=== PATIENT | male | born 1995 | race Caucasian/White ===

== ENCOUNTER 2022-05-18 20:06 | Emergency (ER) | payer OTHER, SELFPAY ==
[2022-05-18] VITALS (15 sets, daily range): BP systolic 123–147; BP diastolic 72–87; PULSE 66–83; RESP 6–18; TEMP 36.6; O2SAT 95–100
--- NOTE | ~2022-05-18 | XR_ITS ---
EXAMINATION: XR chest 2V DATE: 05/18/2022 20:51 INDICATION: Chest pain. TECHNIQUE: Frontal and lateral views of the chest were obtained on 3 radiographs. COMPARISON: None. FINDINGS: There is no pneumonia, pleural effusion, or pneumothorax. The heart size is normal. IMPRESSION: 1. No acute cardiopulmonary disease. Reviewed, dictated and finalized at location A. [employer]
--- NOTE | 2022-05-18 20:23 | ECG_ITS ---
Measurements Intervals [place] Rate: 62 P: 22 MI: 163 QRS: 9 QRSD: 108 T: 9 QT: 376 QTc: 382 Interpretive Statements SINUS RHYTHM WITH MARKED SINUS ARRHYTHMIA NONSPECIFIC ST ELEVATION CONSIDER EARLY REPOLARIZATION ABNORMALITY BORDERLINE ECG NO PREVIOUS ECG AVAILABLE FOR COMPARISON Electronically Signed On 05-21-2022 13:54:52 OBSTETRICAL TECH by Ambrosio Max M.D.
[2022-05-18 20:39] LABS: Basophils Absolute Auto 0.1 K/mm3 (0.0-0.1); Basophils Percent Auto 0.5 % (0.2-1.2); Eosinophils Absolute Auto 0.1 K/mm3 (0-0.3); Eosinophils Percent Auto 0.7 % (0-4.4); Hemoglobin 15.8 g/dL (14.0-18.0); Immature Granulocyte Absolute 0.03 K/mm3 (0.00-0.031); Immature Granulocyte Percent A 0.3 % (0-0.5); Lymphocytes Absolute Auto 3.89 K/mm3 (0.9-3.2); Lymphocytes Percent Auto 35.4 % (18.3-44.2); Mean Corpuscular HGB Conc 35.1 g/dl (32-36); Mean Corpuscular Hemoglobin 29.6 pg (26-34); Mean Corpuscular Volume 84.3 fl (80-100); Monocytes Absolute Auto 0.8 K/mm3 (0.1-0.6); Monocytes Percent Auto 7.4 % (2.6-8.5); Neutrophils Absolute Auto 6.1 K/mm3 (1.3-6.7); Neutrophils Percent Auto 55.7 % (45.5-73.1); Platelet Count Result 242 k/mm3 (150-375); Red Blood Count 5.34 M/mm3 (4.6-6.20); Red Cell Distribution Width 12.3 % (11.5-14.5)
[2022-05-18 20:58] LABS: Alanine Aminotransferase 34 U/L (6-50); Albumin Level 5.1 g/dL (3.5-5.1); Alkaline Phosphatase 71 U/L (38-126); Anion Gap 14 mmol/L (8-16); Aspartate Amino Transferase 31 U/L (17-59); Bilirubin,Total 0.6 mg/dL (0.2-1.3); Blood Urea Nitrogen 17 mg/dL (9-20); Calcium 9.9 mg/dL (8.4-10.2); Carbon Dioxide 21 mmol/L (22-30); Chloride 99 mmol/L (98-107); Estimated CRCL calculation 143 ml/min; Estimated Glomerular Filt Rate > 60; Glucose 104 mg/dL (65-110); Lipase 69 U/L (23-300); Potassium 3.3 mmol/L (3.4-5.0); Sodium 134 mmol/L (137-145)
[2022-05-18 20:59] LABS: Prothrombin Time 12.5 Seconds (11.1-14.7)
[2022-05-18 21:00] LABS: Partial Thromboplastin Time 23.8 SECONDS (22.3-36.8)
[2022-05-18 21:08] LABS: Troponin I < 0.012 ng/mL (0.000-0.034)
[2022-05-18] MEDS: ASPIRIN 81 MG CHEWABLE TABLET 324 MG PO (21:14)
[2022-05-18 21:22] LABS: D Dimer < 0.27 ug/mL (<0.48)
--- NOTE | 2022-05-18 22:35 | ED.GENADULT ---
HPI - General Adult General Chief complaint: Arrhythmia/Palpitations Stated complaint: chest pain. ?anxiety Time Seen by Provider: 05/18/22 20:22 History of Present Illness HPI narrative: Patient 26-year-old gentleman who presents the emergency department with chief complaint of chest tightness and heaviness. Patient states that he started having a fullness feeling in his chest and felt as though the world was caving in on him. Patient states he has had several episodes like this before in the past and attributed to anxiety. Patient states this evening he had an episode of short about 20 minutes prior to arrival in the emergency department. Patient reports that is doing better upon arrival reports that he has no other significant past medical history Related Data Allergies Allergy/AdvReac Type Severity Reaction Status Date / Time No Known Allergies Allergy Unknown Verified 01/10/19 12:50 No Known Allergies Allergy Uncoded 01/10/19 12:50 Course Vital Signs Vital signs: Vital Signs Pulse Rate 70 05/18/22 20:00 Temperature 36.6 C 05/18/22 20:16 Pulse Rate 70 05/18/22 22:48 Respiratory Rate 17 05/18/22 22:48 Blood Pressure 135/81 05/18/22 22:31 Pulse Oximetry 97 05/18/22 22:48 Oxygen Delivery Room Air 05/18/22 20:16 Medical Decision Making [facility] Narrative Medical decision making narrative: Differential diagnosis includes ACS, anxiety, atypical chest pain. Pneumothorax and PE was included as well EKG showed sinus rhythm rate of 62 nonspecific T wave abnormalities without significant ST elevation or ST depression Laboratory studies were obtained which showed a negative D-dimer negative initial troponin. Chest x-ray interpreted by radiology showed no acute disease process Repeat troponin was negative. The patient is feeling much better at this time Vital Signs Vital Signs: Vital Signs Pulse Rate 70 05/18/22 20:00 Temperature 36.6 C 05/18/22 20:16 Pulse Rate 70 05/18/22 22:48 Respiratory Rate 17 05/18/22 22:48 Blood Pressure 135/81 05/18/22 22:31 Pulse Oximetry 97 05/18/22 22:48 Oxygen Delivery Room Air 05/18/22 20:16 Lab Data 05/18/22 20:30 05/18/22 20:30 Labs: Lab Results 05/18/22 05/18/22 05/18/22 Range/Units 20:30 20:30 20:30 WBC 11.0 H (4.5-10.0) K/mm3 RBC 5.34 (4.6-6.20) M/mm3 Hgb 15.8 (14.0-18.0) g/dL Hct 45.0 (42.0-52.0) % MCV 84.3 (80-100) fl MCH 29.6 (26-34) pg MCHC 35.1 (32-36) g/dl RDW 12.3 (11.5-14.5) % Plt Count 242 (150-375) k/mm3 MPV 10.0 (7.4-10.4) fl Immature Gran % (Auto) 0.3 (0-0.5) % Neut % (Auto) 55.7 (45.5-73.1) % Lymph % (Auto) 35.4 (18.3-44.2) % [place] % (Auto) 7.4 (2.6-8.5) % Eos % (Auto) 0.7 (0-4.4) % Baso % (Auto) 0.5 (0.2-1.2) % Lymph # (Auto) 3.89 H (0.9-3.2) K/mm3 [place] # (Auto) 0.8 H (0.1-0.6) K/mm3 Eos # (Auto) 0.1 (0-0.3) K/mm3 Baso # (Auto) 0.1 (0.0-0.1) K/mm3 Abs Immat Gran (auto) 0.03 (0.00-0.031) K/mm3 Absolute Neuts (auto) 6.1 (1.3-6.7) K/mm3 Absolute Nucleated RBC 0.0 (0.0-0.012) K/mm3 Nucleated RBC % 0.0 (0.0-0.2) % PT 12.5 (11.1-14.7) Seconds INR 1.0 APTT 23.8 (22.3-36.8) SECONDS D-Dimer < 0.27 (<0.48) ug/mL Sodium 134 L (137-145) mmol/L Potassium 3.3 L (3.4-5.0) mmol/L Chloride 99 (98-107) mmol/L Carbon Dioxide 21 L (22-30) mmol/L Anion Gap 14 (8-16) mmol/L BUN 17 (9-20) mg/dL Creatinine 0.90 (0.7-1.3) mg/dL Estim Creat Clear Calc 143 ml/min Estimated GFR > 60 (59 - ) Glucose 104 (65-110) mg/dL Calcium 9.9 (8.4-10.2) mg/dL Total Bilirubin 0.6 (0.2-1.3) mg/dL AST 31 (17-59) U/L ALT 34 (6-50) U/L Alkaline Phosphatase 71 (38-126) U/L Troponin I < 0.012 (0.000-0.034) ng/mL Total Protein 8.0 (6.3-8.2) g/dL Albumin 5.1 (3.5-5.1) g/dL Lipase 69 (
--- NOTE | 2022-05-18 23:02 | PC.NURSE ---
Pt sleeping w/ visible chest rise and fall, NAD, skin warm/dry.
[2022-05-18 23:44] LABS: Troponin I < 0.012 ng/mL (0.000-0.034)
[2022-05-19 00:45] VITALS: BP 131/69; PULSE 69; RESP 18; TEMP 36.6; O2SAT 99
== END 2022-05-19 00:45 | disposition home or self-care (01) ==
PROVIDERS: Emergency Provider Emergency Medicine
DX: R07.89 Other chest pain (principal); R00.2 Palpitations; R94.31 Abnormal electrocardiogram [ECG] [EKG]
CPT/HCPCS: 36415; 71046; 80053; 83690; 84484; 85025; 85380; 85610; 85730; 93005; 99284; A9270

== ENCOUNTER 2022-10-08 10:40 | Outpatient (CLI) | payer OTHER, SELFPAY ==
[2022-10-08 11:36] LABS: Hematocrit 47.8 % (42.0-52.0); Mean Corpuscular HGB Conc 33.5 g/dl (32-36); Mean Corpuscular Hemoglobin 28.9 pg (26-34); Mean Corpuscular Volume 86.4 fl (80-100); Platelet Count Result 250 k/mm3 (150-375); Red Blood Count 5.53 M/mm3 (4.6-6.20); Red Cell Distribution Width 12.6 % (11.5-14.5)
[2022-10-08 11:37] LABS: Appearance Urine Clear (Clear); Bilirubin Urine Negative (Negative); Blood Urine Negative (Negative); Color Urine Yellow (Yellow); Glucose Urine UA Negative (Negative); Ketones Urine Negative (Negative); Leukocyte Esterase Ur Negative LEU/UL (NEGATIVE); Nitrate Urine Negative (Negative); Protein Urine Negative (Negative); Specific Grav Ur 1.025 (1.001-1.035); Urobilinogen Urine 0.2 mg/dL (<2.0); pH Urine 6.5 (5.0-9.0)
[2022-10-08 11:39] LABS: Add Urine Microscopic? NO
[2022-10-08 11:49] LABS: Alanine Aminotransferase 32 U/L (6-50); Alkaline Phosphatase 63 U/L (38-126); Anion Gap 8 mmol/L (8-16); Aspartate Amino Transferase 23 U/L (17-59); Bilirubin,Total 0.8 mg/dL (0.2-1.3); Blood Urea Nitrogen 15 mg/dL (9-20); Calcium 10.1 mg/dL (8.4-10.2); Carbon Dioxide 30 mmol/L (22-30); Chloride 102 mmol/L (98-107); Cholesterol 257 mg/dL (0-200); Estimated Glomerular Filt Rate > 60; Glucose 92 mg/dL (65-110); HDL Direct 40 mg/dL; Sodium 140 mmol/L (137-145); Triglycerides 125 mg/dL (<150)
[2022-10-08 11:50] LABS: Creatinine Urine 231.5 mg/dL
[2022-10-08 11:53] LABS: Hemoglobin A1C 5.2 % (<5.7)
[2022-10-08 11:53] LABS: MALB Creatinine Ratio 2.6 mg/g (0-30); Microalbumin Urine Random 6.1 mg/L (0-16.7)
[2022-10-08 12:00] LABS: LDL Cholesterol Direct 177 mg/dL
[2022-10-08 12:45] LABS: Free T4 Free Thyroxine 1.21 ng/mL (0.78-2.19); Vitamin D 25 Hydroxy 50.6 ng/mL
== END 2022-10-08 10:41 | disposition home or self-care (01) ==
PROVIDERS: PCP Emergency Medicine; Visit Provider Emergency Medicine
DX: Z00.00 Encounter for general adult medical examination without abnormal findings (principal); F41.9 Anxiety disorder, unspecified; R00.2 Palpitations; D72.829 Elevated white blood cell count, unspecified
CPT/HCPCS: 36415; 80053; 80061; 81003; 82043; 82306; 83036; 84439; 84443; 85027

== ENCOUNTER 2022-10-08 11:22 | Emergency (ER) | payer OTHER, SELFPAY ==
[2022-10-08 11:28] VITALS: BP 130/84; PULSE 60; RESP 18; TEMP 36.4; O2SAT 99
--- NOTE | 2022-10-08 14:40 | PC.NURSE ---
Pt states that he has been having pressure on the sides of his neck, and sinus pressure in his temples. Pt states that he was seen in Apr for chest pain and was seen at this ED. Pt states he was cleared and told that he had a sinus arrhythmia. Pt never did any follow up because he stated that it sounded like anxiety. States over the passing time his he was no longer having chest pain and starting to have pressure on the sides of his neck and pressure in his temples. Pt states over the time, the attacks became more severe and lasting longer. Pt states last night he was having trouble with his neck and temples. States he was able to fall asleep and woke up with his symptoms improved. 0800 states then the symptoms started to increase while talking to his doctor. States that he has had blood and had no scan until Sat. Sent here by his PCP after the delay in the scan.
--- NOTE | 2022-10-08 15:07 | ECG_ITS ---
Measurements Intervals [place] Rate: 58 P: 26 HI: 165 QRS: 4 QRSD: 107 T: 11 QT: 375 QTc: 370 Interpretive Statements SINUS BRADYCARDIA WITH MARKED SINUS ARRHYTHMIA NONSPECIFIC ST ELEVATION IN ANTERIOR LEADS BASELINE ARTIFACT- I, II, III, AVR, AVL, AVF, V1 BORDERLINE ECG COMPARED TO ECG 05/18/2022 20:27:32 SINUS BRADYCARDIA NOW PRESENT Electronically Signed On 10-08-2022 15:45:02 CDT by Omari Cardoso D.O.
--- NOTE | 2022-10-08 15:10 | ED.GENADULT ---
HPI - General Adult General Chief complaint: Unspecified Stated complaint: sent by pcp Time Seen by Provider: 10/08/22 14:49 Source: patient, RN notes reviewed and old records reviewed Mode of arrival: ambulatory Limitations: no limitations History of Present Illness HPI narrative: This is a 26 year old male who presents for evaluation of panic attack. PAtient states for the past 6 months he is having episodes in which he feels neck pressure and panic. He states he feels like his blood pressure is high. He denies shortness of breath. He denies blurred vision, focal weakness, nausea or vomiting. He denies having any symptoms today. He was evaluated in ER 5 months ago for his symptoms and had unremarkable evaluation. He was seen by pcp today for his symptoms. He had outpatient labs and carotid dopplers ordered. He has carotid dopplers that are scheduled on Saturday. He states he called Dr. Deleon that US was not until Saturday so he was told to come to ER for some reason. PAtient denies any complaints. Related Data Allergies Allergy/AdvReac Type Severity Reaction Status Date / Time No Known Allergies Allergy Unknown Verified 10/08/22 14:39 No Known Allergies Allergy none Uncoded 10/08/22 14:39 Review of Systems Review of Systems: All systems reviewed & are unremarkable except as noted in HPI and below PMFSH Past Medical History Medical History (Updated 10/08/22 @ 15:31 by Michelle Lomeli MD) Patient denies medical problems Surgical History Surgical History (Updated 10/08/22 @ 15:13 by Michelle Lomeli MD) No pertinent past surgical history Social History Social History (Updated 10/08/22 @ 15:13 by Michelle Lomeli MD) Smoking status: Never smoker Exam Narrative: GENERAL: Well-appearing, well-nourished, and in no acute distress. HEAD: Normocephalic, atraumatic EYES: PERRLA and EOMI, conjunctiva clear without discharge EARS: TM's clear bilaterally without erythema or dullness NOSE: Nares clear, no rhinorrhea or epistaxis THROAT:Mucous membranes moist, Oropharynx normal without erythema, exudate, peritonsillar swelling or fluctuance NECK: Supple, without lymphadenopathy or mass RESPIRATORY: No respiratory distress, Airway patent, Respirations non-labored, Clear to auscultation without rales, rhonchi or wheeze HEART: Regular rate and rhythm. No murmur heard. Normal peripheral pulses. ABDOMEN: Soft, nontender, nondistended, normal active bowel sounds. No masses. No rebound or guarding, No organomegaly. EXTREMITIES: No edema, normal strength with full range of motion. SKIN: Warm, dry, normal color without rash NEURO: Alert and oriented x3. CN 2-12 grossly intact. No focal deficits. PSYCH: Normal mood and affect. Course Vital Signs Vital signs: Vital Signs Temperature 97.6 F 10/08/22 11:28 Pulse Rate 60 10/08/22 11:28 Respiratory Rate 18 10/08/22 11:28 Blood Pressure 130/84 10/08/22 11:28 Pulse Oximetry 99 10/08/22 11:28 Temperature 97.6 F 10/08/22 11:28 Pulse Rate 71 10/08/22 15:45 Respiratory Rate 18 10/08/22 15:45 Blood Pressure 148/78 H 10/08/22 15:45 Pulse Oximetry 98 10/08/22 15:45 Medical Decision Making MDM Narrative Medical decision making narrative: PAtient is here for outpatient carotid doppler. He will get as outpatient. He is asymptomatic so no further testing to be done at this time. Medical Records Medical records reviewed: Yes I reviewed the external patient's medical records. Vital Signs Vital Signs: Vital Signs Temperature 97.6 F 10/08/22 11:28 Pulse Rate 60 10/08/22 11:28 Respiratory Rate 18 10/08/22 11:28 Blood Pressure 130/84 10/08/22 11:28 Pulse Oximetry 99 10/08/22 11:28 Temperature 97.6 F 10/08/22 11:28 Pulse Rate 71 10/08/22 15:45 Respiratory Rate 18 10/08/22 15:45 Blood Pressure 148/78 H 10/08/22 15:45 Pulse Oximetry 98 10/08/22 15:45 Lab Data Lab results reviewed: Yes I steve
[2022-10-08 15:45] VITALS: BP 148/78; PULSE 71; RESP 18; O2SAT 98
== END 2022-10-08 15:46 | disposition home or self-care (01) ==
PROVIDERS: Emergency Provider General Practice; PCP Emergency Medicine
DX: F41.9 Anxiety disorder, unspecified (principal); R00.1 Bradycardia, unspecified
CPT/HCPCS: 36415; 80053; 80061; 81003; 82043; 82306; 83036; 84439; 84443; 85027; 93005; 99283

== ENCOUNTER 2022-10-10 16:42 | Outpatient (CLI) | payer OTHER, SELFPAY ==
--- NOTE | ~2022-10-10 | US_ITS ---
EXAMINATION: US carotid duplex BI DATE: 10/10/2022 17:35 INDICATION: Neck and temporal pressure. TECHNIQUE: Grayscale, color Doppler, and pulsed Doppler images of the cervical carotid arteries were obtained. The degree of vessel stenosis is placed in one of the following categories: normal, <50%, 5 0-69%, >=70% but less than near-occlusion, near-occlusion, or total occlusion. Note that percent sten osis relative to normal distal artery lumen diameter is indirectly measured from velocity measurement s as described by Mt, et al. Radiology 2003; 229:[id number]. COMPARISON: None. FINDINGS: RIGHT: The right common carotid artery (CCA) peak systolic velocity (PSV) is 104 cm/s. The right internal ca rotid artery (ICA) PSV is 97 cm/s. The right ICA end-diastolic velocity (EDV) is 22 cm/s. The right I CA/CCA PSV ratio is 0.9. Grayscale and color Doppler images yield an estimate of 0% diameter reductio n from plaque in the ICA. There is antegrade flow in the right vertebral artery. LEFT: The left CCA PSV is 93 cm/s. The left ICA PSV is 83 cm/s. The left ICA EDV is 28 cm/s. The left ICA/C CA PSV ratio is 0.9. Grayscale and color Doppler images yield an estimate of 0% diameter reduction fr om plaque in the ICA. There is antegrade flow in the left vertebral artery. IMPRESSION: 1. Normal internal carotid arteries. Reviewed, dictated and finalized at location A.
== END 2022-10-10 16:43 | disposition home or self-care (01) ==
LOC: ANHIMG 17:06
PROVIDERS: PCP Emergency Medicine; Visit Provider Emergency Medicine
DX: M54.2 Cervicalgia (principal)
CPT/HCPCS: 93880